=== PATIENT | male | born 1990 | race African-American/Black ===

== ENCOUNTER 2022-11-15 14:07 | Emergency (ER) | payer MEDICAID ==
[~2022-11-15] VITALS: Ht 175.3 cm; Wt 82.0 kg
[2022-11-15 14:25] VITALS: BP 161/81
== END 2022-11-15 19:49 | disposition home or self-care (01) ==
LOC: ER 14:07
DX: S62.607B Fracture of unspecified phalanx of left little finger, initial encounter for open fracture (principal); W22.8XXA Striking against or struck by other objects, initial encounter; Y93.89 Activity, other specified; Y92.89 Other specified places as the place of occurrence of the external cause
CPT/HCPCS: 29130; 73140; 99283